=== PATIENT | male | born 1995 | race Caucasian/White ===

== ENCOUNTER 2018-10-27 07:32 | Emergency (ER) | payer SELFPAY ==
[2018-10-27] MEDS ORDERED: ACETAMINOPHEN 325 MG TABLET PO ONE (09:23)
[2018-10-27] MEDS ORDERED: DEXAMETHASONE 4 MG TABLET PO ONE (09:23)
--- NOTE | 2018-10-27 09:25 | ER Document Report ---
HPI - HPI Patient complains to provider of: Sore throat Time Seen by Provider: 10/27/18 09:19 Onset: This morning Onset/Duration: Gradual Quality of pain: Achy Pain Level: 4 Context: Patient presents complaining of sore throat that started did have nausea and vomited once this morning but denies any nausea since then. Patient denies any fever or cough. Associated Symptoms: Vomiting, Sore throat. denies: Nonproductive cough, Productive cough, Earache, Fever Exacerbated by: Denies Relieved by: Denies Similar symptoms previously: Yes Recently seen / treated by doctor: No - ROS ROS below otherwise negative: Yes Systems Reviewed and Negative: Yes All other systems reviewed and negative - CONSTITUTIONAL Constitutional: DENIES: Fever, Chills - EENT EENT: REPORTS: Sore Throat - RESPIRATORY Respiratory: DENIES: Coughing - GASTROINTESTINAL Gastrointestinal: REPORTS: Patient vomiting. DENIES: Abdominal Pain, Diarrhea - DERM Skin Color: Normal Skin Problems: None Past Medical History - General Information source: Patient - Social History Smoking Status: Current Every Day Smoker Smoking Education Provided: Yes Frequency of alcohol use: None Drug Abuse: None Occupation: Foodservice Family History: Reviewed & Not Pertinent Patient has suicidal ideation: No Patient has homicidal ideation: No - Medical History Medical History: Negative Renal/ Medical History: Denies: Hx Peritoneal Dialysis Surgical Hx: Negative - Immunizations Immunizations up to date: Yes Vertical Provider Document - CONSTITUTIONAL Agree With Documented VS: Yes Exam Limitations: No Limitations General Appearance: WD/WN, No Apparent Distress - INFECTION CONTROL TRAVEL OUTSIDE OF THE [place] IN LAST 30 DAYS: No - HEENT HEENT: Atraumatic, Normocephalic, Pharyngeal Tenderness, Pharyngeal Erythema. negative: Pharyngeal Exudate - NECK Neck: Normal Inspection, Supple. negative: Lymphadenopathy-Left, Lymphadenopathy-Right - RESPIRATORY Respiratory: Breath Sounds Normal, No Respiratory Distress - CARDIOVASCULAR Cardiovascular: Regular Rate, Regular Rhythm, No Murmur. negative: Tachycardia - MUSCULOSKELETAL/EXTREMETIES Musculoskeletal/Extremeties: MAEW - NEURO Level of Consciousness: Awake, Alert, Appropriate Motor/Sensory: No Motor Deficit - DERM Integumentary: Warm, Dry, No Rash Course - Re-evaluation Re-evalutation: 10/27/18 10:11 Patient's rapid strep test is negative at this time. Throat culture is pending, no concern for peritonsillar abscess. No potential airway compromise at this time. - Vital Signs Vital signs: Temp Pulse Resp BP Pulse Ox 97.9 F 79 20 153/89 H 98 10/27/18 07:53 10/27/18 07:53 10/27/18 07:53 10/27/18 07:53 10/27/18 07:53 - Laboratory Laboratory results interpreted by me: 10/27/18 10:11 Labs- Entire Visit 10/27/18 09:40 Group A Strep Rapid NEGATIVE Discharge - Discharge Clinical Impression: Sore throat Condition: Stable Disposition: HOME, SELF-CARE Instructions: Sore Throat ([facility]), Steroid Medication Additional Instructions: Return immediately for any new or worsening symptoms Followup with your primary care provider, call tomorrow to make a followup appointment Throat culture is pending, we will call if you need any different treatment Prescriptions: Naproxen [Naprosyn 250 Nmg Tablet] 1 tab PO BID #14 tablet Forms: Smoking Cessation Education, Return to Work Referrals: KJ CASTRO MD [EMERITUS] - Follow up as needed
[2018-10-27 10:28] VITALS: BP 136/89
== END 2018-10-27 10:29 | disposition home or self-care (01) ==
LOC: ER 07:32
DX: J02.9 Acute pharyngitis, unspecified (principal); R11.2 Nausea with vomiting, unspecified; F17.200 Nicotine dependence, unspecified, uncomplicated
CPT/HCPCS: 87070; 87880; 99283